=== PATIENT | male | born 1990 | race Caucasian/White ===

== ENCOUNTER 2018-09-14 22:55 | Emergency (ER) | payer MEDICAID ==
[2018-09-14 23:40] VITALS: BP 141/94; PULSE 112
[2018-09-15] MEDS ORDERED: Acetaminophen/HYDROcodone 325-5 MG Tab PO ONE (00:35)
--- NOTE | 2018-09-15 00:37 | EDM.PDOC ---
ED HPI GENERAL MEDICAL PROBLEM - General Chief Complaint: Upper Extremity Injury/Pain Stated Complaint: FELL AND LANDED ON LEFT ARM Time Seen by Provider: 09/15/18 00:35 Source of Information: Reports: Patient History Limitations: Reports: No Limitations - History of Present Illness INITIAL COMMENTS - FREE TEXT/NARRATIVE: pt fell while skateboarding about 8 pm. He is not able to extend his elebow and he has pain in the forearm. 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 Pain Score (Numeric/FACES): 8 - Related Data Allergies Allergy/AdvReac Type Severity Reaction Status Date / Time No Known Allergies Allergy Verified 09/15/18 00:05 Home Meds: Home Meds buPROPion [buPROPion XL] 300 mg PO DAILY 09/15/18 [History] Past Medical History Cardiovascular History: Reports: Heart Murmur Musculoskeletal History: Reports: Arthritis Neurological History: Reports: Concussion, Seizure, Other (See Below) Other Neuro History: heat induced seizures Psychiatric History: Reports: ADHD, Anxiety - Past Surgical History HEENT Surgical History: Reports: Myringotomy w Tube(s) Social & Family History - Tobacco Use Smoking Status *Q: Current Every Day Smoker Years of Tobacco use: 13 Packs/Tins Daily: 1 - Caffeine Use Caffeine Use: Reports: Coffee, Energy Drinks, Soda - Recreational Drug Use Recreational Drug Use: Yes Drug Use in Last 12 Months: Yes Recreational Drug Type: Reports: Marijuana/Hashish Recreational Drug Use Frequency: Daily Review of Systems - Review of Systems Review Of Systems: See Below Constitutional: Reports: No Symptoms Eyes: Reports: No Symptoms Ears: Reports: No Symptoms Nose: Reports: No Symptoms Mouth/Throat: Reports: No Symptoms Respiratory: Reports: No Symptoms Cardiovascular: Reports: No Symptoms GI/Abdominal: Reports: No Symptoms Musculoskeletal: Reports: Other ( pain in his left elebow, forearm and wrist. ) ED EXAM, GENERAL - Physical Exam Exam: See Below Free Text/Narrative:: pt arrived with pain in the left elebow. He has not been able to extend the elebow. after he fell skate boarding. Exam Limited By: No Limitations General Appearance: Alert, Moderate Distress Extremities: Other (pt is very tender at the elebow level. He has also had pain into the forearm. He is not able to extend the elebow. He has some wrist pain. ) Neurological: Alert, Oriented, Normal Cognition Course - Vital Signs Last Recorded V/S: Last Vital Signs Temp 35.7 C 09/15/18 00:07 Pulse 112 H 09/15/18 00:07 Resp 16 09/15/18 00:07 BP 141/94 H 09/15/18 00:07 Pulse Ox 98 09/15/18 00:07 - Orders/Labs/Meds Meds: Medications Discontinued Medications Generic Name Dose Route Start Last Admin Trade Name Freq PRN Reason Stop Dose Admin Hydrocodone Bitart/Acetaminophen 1 tab 09/15/18 00:35 09/15/18 01:08 [place] 325-5 Mg PO 09/15/18 00:36 1 tab ONETIME ONE Administration - Re-Assessments/Exams Free Text/Narrative Re-Assessment/Exam: 09/15/18 01:14 xray of the elbow shows a fracture of the radial head. His forearm looks normal. His wrist appears normal. Departure - Departure Time of Disposition: 01:37 Disposition: Home, Self-Care 01 Condition: Fair Clinical Impression: Fracture of radial head, left, closed - Discharge Information Referrals: PCP,None [Primary Care Provider] - Forms: ED Department Discharge Care Plan Goals: elebow imbolizer, cool pack, motrin 600mg qid, norco 5/325 q6h prn for pain. appt with ortho Tuesday.
--- NOTE | 2018-09-15 01:31 | CRLCR ---
INDICATION: Elbow pain TECHNIQUE: Elbow radiograph 3 views left COMPARISON: None FINDINGS: Bone: There is a mildly displaced and impacted fracture present in the radial head neck junction. Joint: The elbow joint is unremarkable. No significant displacement of the anterior or posterior fat pads noted to suggest an effusion. Soft tissue: Unremarkable. No radiopaque foreign bodies are seen. IMPRESSION: 1. There is a mildly displaced and impacted fracture present in the radial head neck junction. Dictated by Milo Brian MD @ 09/15/2018 1:30:55 AM Dictated by: Milo Brian MD @ 09/15/2018 01:30:58 (Electronically Signed)
--- NOTE | 2018-09-15 01:31 | CRLCR ---
INDICATION: Pain in wrist TECHNIQUE: Wrist radiograph 3 views left COMPARISON: None FINDINGS: Bone: No acute fractures or aggressive bone lesions are identified. Joint: The radiocarpal, carpal, and carpometacarpal joints are unremarkable in appearance. Soft tissue: Unremarkable. No radiopaque foreign bodies are seen. IMPRESSION: 1. No acute osseous injuries or abnormalities are noted. Dictated by: Milo Brian MD @ 09/15/2018 01:30:20 (Electronically Signed)
--- NOTE | 2018-09-15 01:31 | CRLCR ---
INDICATION: Pain in elbow, forearm, and wrist TECHNIQUE: Forearm radiograph 2 views left COMPARISON: None FINDINGS: Bone: There is an impacted fracture at the proximal radial head neck junction. Joint: The visualized radiocarpal and elbow joints are unremarkable, but the elbow joint is not profiled. If there is pain or tenderness in this region, dedicated views of the elbow are recommended. Soft tissue: Unremarkable. No radiopaque foreign bodies are seen. IMPRESSION: 1. There is an impacted fracture at the proximal radial head neck junction. Dictated by Milo Brian MD @ 09/15/2018 1:29:44 AM Dictated by: Milo Brian MD @ 09/15/2018 01:29:47 (Electronically Signed)
== END 2018-09-15 02:06 | disposition home or self-care (01) ==
LOC: JP.ED 22:55
DX: S52.122A Displaced fracture of head of left radius, initial encounter for closed fracture (principal); F17.210 Nicotine dependence, cigarettes, uncomplicated; Z79.899 Other long term (current) drug therapy; V00.131A Fall from skateboard, initial encounter; Y93.51 Activity, roller skating (inline) and skateboarding
CPT/HCPCS: 73080; 73090; 73110; 99283; A9270

== ENCOUNTER 2019-02-21 05:59 | Day surgery (SDC) | payer MEDICAID ==
[2019-02-21] MEDS ORDERED: Bupivacaine 0.5% 50 ML MDV ONE (06:47)
[2019-02-21] MEDS ORDERED: Nozin Nasal Sanitizer NASBOTH ONE (07:00)
[2019-02-21] MEDS ORDERED: Lactated Ringers 1,000 ML IV SCH (07:00)
[2019-02-21] MEDS ORDERED: ceFAZolin 2 GM in Sodium Chloride 0.9% 50 ML IV ONE (07:00)
[2019-02-21] MEDS ORDERED: fentaNYL 250 MCG/5 ML SDV ONE (07:16)
[2019-02-21] MEDS ORDERED: Ondansetron 4 MG/2 ML SDV ONE (07:17)
[2019-02-21] MEDS ORDERED: Dexamethasone 4 MG/ML SDV ONE (07:17)
[2019-02-21] MEDS ORDERED: Neostigmine Methylsulfate 1 MG/ML 5 ML Syringe ONE (07:17)
[2019-02-21] MEDS ORDERED: Rocuronium 50 MG/5 ML Vial ONE (07:17)
[2019-02-21] MEDS ORDERED: Succinylcholine 200 MG/10 ML MDV ONE (07:17)
[2019-02-21] MEDS ORDERED: Midazolam 1 MG/ML 2 ML SDV ONE (07:17)
[2019-02-21] MEDS ORDERED: Glycopyrrolate 0.2 MG/ML 5 ML MDV ONE (07:17)
[2019-02-21] MEDS ORDERED: Propofol 200 MG/20 ML SDV ONE (07:17)
[2019-02-21 09:26] VITALS: PULSE 62
[2019-02-21] MEDS ORDERED: Acetaminophen/oxyCODONE 325-5 MG Tab PO ONE (09:30)
[2019-02-21 09:48] VITALS: BP 115/80
--- NOTE | 2019-02-21 20:22 | OR ---
DATE OF PROCEDURE: 02/21/2019 SURGEON: Morgan Pickard MD PREOPERATIVE DIAGNOSIS: Malunion, left radial head. POSTOPERATIVE DIAGNOSIS: Malunion, left radial head. PROCEDURE: Arthrotomy, left elbow with partial radial head excision and osteoplasty of radial head. ANESTHESIA: General. INDICATIONS: Herson is a 28-year-old gentleman, who had previously sustained an impacted fracture of his radial head. He was lost to followup for a period of time and upon return reported having a significant amount of pain in the elbow with a painful snapping with both flexion, extension and pronation, supination. X-rays revealed the radial neck fracture to have healed with slight impaction in mushroom shape resulting in impingement against the overlying extensor tendons, particularly extensor radialis brevis. He now presents to the operating room for excision of a bony prominence from malunion from the slight impaction and contouring of the radial head and neck. Risks, benefits, and potential complications of the procedure were discussed. DESCRIPTION OF PROCEDURE: After adequate anesthesia was obtained, the patient was placed supine with a tourniquet about the left upper arm. Arm was then prepped and draped in a sterile fashion. Arm was exsanguinated and tourniquet inflated to 250 mmHg pressure. An incision was made over the lateral aspect of the elbow and carried down through the subcutaneous tissues. A plane just above the anconeus was developed and arthrotomy was performed exposing the lateral aspect of the radial head and capitellum. This revealed that the radial neck fracture had healed completely with slight impaction and mushroom deformity around the lateral and posterolateral aspect. There was also a slight bony prominence, which was rather sharp at the very inferior aspect of the fracture, more along the radial neck. This was removed with a rongeur. Rongeur was then used to contour the radial head and neck transition removing the mushroom deformity. Arm was taken through pronation, supination with no evidence of any other impinging osteophytes, bony prominences or deformities. Edges were contoured smoothly over the transition portions of the osteoplasty. Elbow was then irrigated. Extensor tendon was then repaired [id number] fashion with a 0 Vicryl. Skin was closed with 2-0 Vicryl and a running 3-0 Monocryl. Steri- Strips were applied. Skin and soft tissues were infiltrated with Marcaine, and a sterile dressing was applied. The patient tolerated the procedure very well with no complications. He was taken from the operating room in stable condition. Morgan Pickard MD /[id number] MTDD
== END 2019-02-21 10:38 | disposition home or self-care (01) ==
LOC: JP.SDS 05:59
PROVIDERS: ATTEND Specialist
DX: S52.122P Displaced fracture of head of left radius, subsequent encounter for closed fracture with malunion (principal); E66.9 Obesity, unspecified; F17.200 Nicotine dependence, unspecified, uncomplicated; X58.XXXD Exposure to other specified factors, subsequent encounter; Z68.33 Body mass index [BMI] 33.0-33.9, adult
CPT/HCPCS: 25400; 36415; 80048; 85027; A9270; J0330; J0690; J1100; J2250; J2405; J2704; J3010; J3490; J7050; J7120; J2710

== ENCOUNTER 2020-12-10 11:08 | Emergency (ER) | payer MEDICAID ==
[2020-12-10 11:58] VITALS: BP 146/85; PULSE 51
--- NOTE | 2020-12-10 12:19 | EDM.PDOC ---
ED HPI GENERAL MEDICAL PROBLEM - General Chief Complaint: Lower Extremity Injury/Pain Stated Complaint: RIGHT KNEE IS SORE Time Seen by Provider: 12/10/20 11:45 Source of Information: Reports: Patient History Limitations: Reports: No Limitations - History of Present Illness INITIAL COMMENTS - FREE TEXT/NARRATIVE: This is an otherwise healthy 30-year-old male who presents with concerns of right knee pain. He dropped a brick on the left medial knee approximately 2 weeks ago. He then struck the lateral part of the knee on a log. He reports some ongoing discomfort over the last couple weeks. He is able to bear weight on the extremity. No swelling. Otherwise feeling well, no fevers or chills. He does not have a local PCP. He has been intermittently trying ibuprofen. Comes to the ER today because he does not have a doctor and felt like after 2 weeks it was time to get it checked out. - Related Data Allergies Allergy/AdvReac Type Severity Reaction Status Date / Time No Known Allergies Allergy Verified 12/10/20 11:53 Home Meds: Home Meds NK [No Known Home Meds] 12/10/20 [History] Past Medical History HEENT History: Reports: None Cardiovascular History: Reports: Heart Murmur Respiratory History: Reports: None Gastrointestinal History: Reports: None Genitourinary History: Reports: None Musculoskeletal History: Reports: Arthritis, Fracture, Other (See Below) Other Musculoskeletal History: left elbow scope 02/21/19 Neurological History: Reports: Concussion, Seizure, Other (See Below) Other Neuro History: heat induced seizures Psychiatric History: Reports: ADHD, Anxiety Endocrine/Metabolic History: Reports: None Hematologic History: Reports: None Immunologic History: Reports: None Oncologic (Cancer) History: Reports: None Dermatologic History: Reports: None - Past Surgical History Head Surgeries/Procedures: Reports: None HEENT Surgical History: Reports: Myringotomy w Tube(s) Cardiovascular Surgical History: Reports: None Neurological Surgical History: Reports: None Musculoskeletal Surgical History: Reports: None Dermatological Surgical History: Reports: None Social & Family History - Tobacco Use Tobacco Use Status *Q: Never Tobacco User Second Hand Smoke Exposure: No - Caffeine Use Caffeine Use: Reports: Coffee, Energy Drinks - Recreational Drug Use Recreational Drug Use: No Review of Systems - Review of Systems Review Of Systems: See Below Constitutional: Reports: No Symptoms Eyes: Reports: No Symptoms Ears: Reports: No Symptoms Nose: Reports: No Symptoms Mouth/Throat: Reports: No Symptoms Respiratory: Reports: No Symptoms Cardiovascular: Reports: No Symptoms GI/Abdominal: Reports: No Symptoms Genitourinary: Reports: No Symptoms Musculoskeletal: Reports: Other (knee pain) Skin: Reports: No Symptoms Neurological: Reports: No Symptoms Psychiatric: Reports: No Symptoms ED EXAM, GENERAL - Physical Exam Exam: See Below Exam Limited By: No Limitations General Appearance: Alert, No Apparent Distress Ears: Normal External Exam Nose: Normal Inspection Throat/Mouth: Normal Inspection Head: Atraumatic, Normocephalic Neck: Normal Inspection Respiratory/Chest: No Respiratory Distress Cardiovascular: Regular Rate, Rhythm GI/Abdominal: No Distention Back Exam: Normal Inspection Extremities: Normal Inspection, Other (No right knee swelling, no deformity, mild tenderness over the lateral aspect of the knee as well as over the proximal patella) Neurological: Alert, Oriented Psychiatric: Normal Affect Skin Exam: Warm, Dry Course - Vital Signs Last Recorded V/S: Last Vital Signs Temp 36.6 C 12/10/20 11:59 Pulse 51 L 12/10/20 11:59 Resp 16 12/10/20 11:59 BP 146/85 H 12/10/20 11:59 Pulse Ox 97 12/10/20 11:59 - Orders/Labs/Meds Orders: Active Orders 24 hr Category Date Time Status Consult to Orthopedic Clinic [CONS] Routine Cons 12/10/20 12:13 Active Knee 3V Rt [CR] Stat Exams 12/10/20 12:13 Ordered - Re-Assessments/Exams Free Text/Narrative Re-Assessment/Exam: 30-year-old male presents with concerns of right knee pain for the last 2 to 3 weeks. Exam is with some mild diffuse tenderness but no concerning findings. Is ambulatory in the extremity. No signs of an infected joint. Initial impression is that this is safe for further symptomatic cares. I offered him an x-ray and follow-up in the orthopedic clinic, he eloped from ED prior to completion of evaluation 12/10/20 12:57 Departure - Departure Time of Disposition: 12:16 Disposition: Eloped 07 Clinical Impression: Knee pain Qualifiers: Chronicity: acute Laterality: right Qualified Code(s): M25.561 - Pain in right knee - Discharge Information *PRESCRIPTION DRUG MONITORING PROGRAM REVIEWED*: No *COPY OF PRESCRIPTION DRUG MONITORING REPORT IN PATIENT MEGHAN: No Instructions: Knee Sprain, Adult, [id number] Referrals: PCP,None [Primary Care Provider] - Forms: ED Department Discharge Additional Instructions: As discussed, there is no fracture or emergent issue with your knee. We would like you to follow up with the orthopedic clinic, a referral for this is placed. Please take tylenol and ibuprofen as needed for pain, instructions for this are on the bottle. Thank you for trusting us to care for you today. Sepsis Event Note (ED) - Focused Exam Vital Signs: Vital Signs Temp Pulse Resp BP Pulse Ox 12/10/20 11:59 36.6 C 51 L 16 146/85 H 97 12/10/20 11:57 36.6 C 51 L 16 146/85 H 97 - My Orders Last 24 Hours: My Active Orders 12/10/20 12:13 Consult to Orthopedic Clinic [CONS] Routine Knee 3V Rt [CR] Stat - Assessment/Plan Last 24 Hours: My Active Orders 12/10/20 12:13 Consult to Orthopedic Clinic [CONS] Routine Knee 3V Rt [CR] Stat
== END 2020-12-10 13:00 | disposition left against medical advice (07) ==
LOC: JP.ED 11:08
DX: M25.561 Pain in right knee (principal)
CPT/HCPCS: 99283-25

== ENCOUNTER 2022-02-07 15:02 | Emergency (ER) | payer MEDICAID ==
[2022-02-07 15:43] VITALS: BP 149/74; PULSE 64
[2022-02-07] MEDS ORDERED: Ketorolac 30 MG/ML SDV IM ONE (15:48)
== END 2022-02-07 17:04 | disposition home or self-care (01) ==
LOC: JP.ED 15:02
DX: S62.396A Other fracture of fifth metacarpal bone, right hand, initial encounter for closed fracture (principal); Z72.0 Tobacco use; W20.8XXA Other cause of strike by thrown, projected or falling object, initial encounter
CPT/HCPCS: 29125; 73130; 96372; 99283; J1885